=== PATIENT | male | born 1965 | race Caucasian/White ===

== ENCOUNTER 2018-10-13 11:43 | Emergency (ER) | payer BC ==
[~2018-10-13] VITALS: Ht 182.8 cm; Wt 72.6 kg
[~2018-10-13 11:43] MED LIST: CLARITIN-D 12 H1 TAB PO; COMPAZINE10 MG PO; FLEXERIL5 MG PO; IBU800 M1 PO; KEFLEX500 MG PO; MOTRIN800 MG PO; NAPROSYN500 MG PO; PROAIR HFA0.09 MG/AC INH; ROBITUSSIN AC 110 ML PO; VIBRAMYCIN100 MG PO; ZANTAC150 MG PO
[2018-10-13] MEDS ORDERED: PREDNISONE10 MG PO (12:00)
== END 2018-10-13 13:52 | disposition home or self-care (01) ==
LOC: ED 11:43
DX: M70.21 Olecranon bursitis, right elbow (principal); R03.0 Elevated blood-pressure reading, without diagnosis of hypertension; Z79.899 Other long term (current) drug therapy; Y93.89 Activity, other specified

== ENCOUNTER → 2018-10-30 | Outpatient (CLI) | payer BC ==
[~2018-10-30] MED LIST changes: +PREDNISONE10 MG PO
== END | disposition home or self-care (01) ==
LOC: RAD 10:41
DX: M86.8X8 Other osteomyelitis, other site (principal)

== ENCOUNTER 2019-02-19 11:18 | Inpatient (IN) | payer BC ==
[~2019-02-19] VITALS: Ht 182.8 cm; Wt 77.1 kg
--- NOTE | ~2019-02-19 | ST ---
[place], [place] EXERCISE STRESS TEST REPORT NAME: MELIDA BENNETT [facility] #: [id number] UNIT #: [id number] ROOM: 408 DOCTOR: KEVIN RICO,MAVIS BIRTHDATE: [birth year] DOS: 02/20/2019 REASON FOR TEST: Chest pain. PHYSICAL EXAMINATION: NECK: Supple. LUNGS: Clear anteriorly. HEART: Regular rhythm. PROTOCOL: Shayan protocol. Total stress time 6 minutes 15 seconds. Maximum heart 146 which is 89% target heart rate. Peak blood pressure 158/70. Total METS, 7.4 METS. SYMPTOMS: Patient chest pain free. EKG: Resting EKG showed sinus rhythm. Stress EKG showed no ischemia, no arrhythmias. CONCLUSION: Clinically, the patient is chest pain free. EKG nonischemic. POST-STRESS COMPLICATIONS: None. MAVIS BROWN MD CM:STRESS:EXERCISE STRESS TEST REPORT [id number] MAVIS BROWN MD
--- NOTE | ~2019-02-19 | EKG ---
[place], [place] ELECTROCARDIOGRAM REPORT NAME: MELIDA BENNETT UNIT #: [id number] ROOM: 408 DOCTOR: SWAPNIL DRAFT REPORT BIRTHDATE: [birth year] [facility] Test Date: 2019-02-19 Test Time: 15:17:19 Pat Name: MELIDA BENNETT Department: Room: 408 Gender: M Core Mounter: Clary [place] : 1965 Requested By: BOBBY SCALES Order Number: [id number] Reading MD: Thee Gayle Measurements Intervals [place] Rate: 79 P: 72 ND: 173 QRS: 61 QRSD: 101 T: 45 QT: 409 QTc: 469 Interpretive Statements Sinus rhythm Probable left atrial enlargement RSR' in V1 or V2, probably normal variant Electronically Signed On 02-20-2019 9:53:04 PDT by Thee Gayle CM:EKGRPT:ELECTROCARDIOGRAM REPORT [id number] BOBBY CARBALLO DRAFT REPORT BOBBY SCALES DO
--- NOTE | ~2019-02-19 | PR ---
[place], [place] PROGRESS NOTE NAME: MELIDA BENNETT UNIT #: [id number] ROOM: 408 DOCTOR: MAVIS BROWN MD BIRTHDATE: [birth year] DOS: 02/20/2019 REASON FOR VISIT: Chest pain. SUBJECTIVE: The patient had some chest pain last night around 10:00 at rest, lasted about 30 minutes. No radiation. No associated symptoms. He described this as some dull ache pain in the midsternal area. The pain resolved without any intervention. No short of breath. No PND, no orthopnea. No palpitation or dizziness. No bladder or bowel symptoms. REVIEW OF SYSTEMS: Review of 10 systems essentially negative except as mentioned above. RHYTHM STRIPS: The patient in sinus rhythm. OBJECTIVE: VITAL SIGNS: Blood pressure 110/70, pulse 62, respiratory rate 18. GENERAL: Alert, comfortable, in no acute distress. HEENT: Pupils are round and equal. No jaundice. NECK: Supple. No distended neck veins. No carotid bruit. CHEST: Symmetrical, nontender. LUNGS: Clear to auscultation bilaterally. HEART: Regular rhythm, no S3, no palpable thrills. ABDOMEN: Benign, nontender. Bowel sounds normal. EXTREMITIES: Showed no edema. Distal pulses palpable. SKIN: Warm and dry. No cyanosis, no clubbing. RECTAL: Deferred. LABORATORY DATA: Reviewed. CBC, chemistry mostly unremarkable. Cardiac troponins are negative. Hemoglobin 13.9. IMPRESSION: 1. Chest pain, myocardial infarction ruled out. 2. Acid reflux. 3. History of tobacco use, quit 3 weeks ago. 4. Alcohol use. 5. No family history of premature coronary artery disease. 6. Exercise nuclear stress test today. 7. Risk factor modification to quit drinking and also continue to quit smoking discussed. 8. If the stress test is nonischemic, he can be discharged home today. [place], [place] PROGRESS NOTE NAME: MELIDA BENNETT UNIT #: [id number] ROOM: 408 DOCTOR: MAVIS BROWN MD BIRTHDATE: [birth year] MAVIS BROWN MD CM:PNTRANS [id number] MAVIS BROWN MD 02/21/19 0026 interface
--- NOTE | ~2019-02-19 | EKG ---
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
--- NOTE | ~2019-02-19 | CON ---
[place], [place] REPORT OF CONSULTATION NAME: MELIDA BENNETT [facility] #: [id number] UNIT #: [id number] ROOM: 408 DOCTOR: MAVIS BROWN MD BIRTHDATE: [birth year] DOS: 02/19/2019 CARDIOLOGY CONSULTATION REASON FOR CONSULTATION: Chest pain. HISTORY OF PRESENT ILLNESS: The patient is a 53-year-old gentleman with no prior cardiovascular history, who was admitted for intermittent chest pains for the past 2 weeks. He described this pain as a midsternal area, intermittent, sometimes dull and sometimes tightness and it comes usually with exertion and relieves with rest. About 3 weeks ago, he had a tick bite near the left upper thigh. No fever and chills. The patient has some chronic cough from his smoking and he quit 3 weeks ago. The chest pain again in the midsternal area. No radiation. No associated symptoms. The patient used to smoke 3 packs a day, but he quit smoking about 3 weeks ago. Denies any PND or orthopnea. No nausea, vomiting, diarrhea. No fever or chills. No hemoptysis. No bladder or bowel symptoms. No neurologic symptoms. REVIEW OF SYSTEMS: Review of 10 systems negative except as mentioned above. PAST MEDICAL HISTORY: 1. Acid reflux. 2. Right shoulder pain, chronic. PAST SURGICAL HISTORY: History of tooth extraction. SOCIAL HISTORY: The patient used to smoke 3 packs a day, but quit 3 weeks ago. The patient does drink beer daily. Does not use illicit drugs. FAMILY HISTORY: Father for unknown cause. Mother at the age 70 from cancer. The patient had a myocardial infarction in her 30s. ALLERGIES: Reviewed. HOME MEDICATIONS: Reviewed. PHYSICAL EXAMINATION: VITAL SIGNS: Blood pressure 140/86, pulse 76, respiratory rate 16, weight 77.1 kg, BMI 23. GENERAL: Alert, comfortable, in no acute distress. HEENT: Pupils are round and equal. No jaundice. Tongue was moist and pharynx clear. NECK: Supple, no distended neck veins, no carotid bruit. CHEST: Symmetrical, nontender. LUNGS: Few scattered rhonchi. Good air entry bilaterally. HEART: Regular rhythm, no S3, no palpable thrills. ABDOMEN: Benign, nontender. Bowel sounds normal. EXTREMITIES: Showed no edema. Distal pulses palpable. SKIN: Warm and dry. No cyanosis, no clubbing. RECTAL: Deferred. [place], [place] REPORT OF CONSULTATION NAME: MELIDA BENNETT UNIT #: [id number] ROOM: [facility] DOCTOR: KEVIN RICO,MAVIS BIRTHDATE: [birth year] GENITOURINARY: Deferred. PSYCHIATRIC: The patient is alert with good mood and affect. REVIEW OF THE DIAGNOSTIC TESTS: EKG showed sinus rhythm. CBC, chemistry unremarkable. Cardiac troponin is negative x 1. IMPRESSION: 1. Chest pain. 2. History of tobacco use, quit 3 weeks ago. 3. Acid reflux. 4. Alcohol abuse. 5. Family history of premature coronary artery disease. RECOMMENDATIONS: 1. Currently, he is pain free. EKG and labs unremarkable. 2. Continue cyclic cardiac enzymes. If negative, we will schedule for exercise nuclear stress test tomorrow. 3. Risk factor modification for continued to quit smoking and also to quit drinking discussed. Further recommendations based on his symptoms and his labs and her stress test results. 4. Continue to monitor heart rate and blood pressures. MAVIS BROWN MD CM:CONSTR:REPORT OF CONSULTATION 01 02/20/19 0635 interface
--- NOTE | ~2019-02-19 | EKG ---
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
[2019-02-19 11:19] VITALS: BP 146/93
[2019-02-19 11:55] VITALS: BP 136/88
[2019-02-19 11:56] LABS: BASO # 0.1 10*3/uL (0.0-0.1); BASO % 0.8 % (0.0-1.0); EOS % 0.4 % (1.0-4.0); HEMATOCRIT 44.9 % (42.0-52.0); HEMOGLOBIN 15.8 g/dl (14.0-18.0); LYMPH # 1.5 10*3/uL (1.3-4.4); LYMPH % 19.9 % (27.0-41.0); MEAN CELL VOLUME 95.9 fl (80.0-94.0); MEAN CORPUSCULAR HGB 33.8 pg (27.0-31.0); MEAN CORPUSCULAR HGB CONC 35.2 g/dl (33.0-37.0); MEAN PLATELET VOLUME 9.7 fl (9.6-12.3); MONO # 0.9 10*3/uL (0.1-1.0); MONO % 11.3 % (3.0-9.0); NEUT # 5.1 10*3/uL (2.3-7.9); NEUT % 67.2 % (47.0-73.0); PLATELET COUNT AUTOMATED 256 10*3/uL (130-400); RED BLOOD COUNT 4.68 10*6/uL (4.50-5.90); RED CELL DISTRI WIDTH 12.4 % (0-14.5); WHITE BLOOD COUNT 7.6 10*3/uL (4.8-10.8)
[2019-02-19 12:05] LABS: INTERNATIONAL NORM RATIO 0.9 (2.0-3.5)
[2019-02-19 12:11] LABS: ALBUMIN 3.9 gm/dl (3.1-4.5); ALKALINE PHOSPHATASE 106 U/L (45-117); BUN 9 mg/dl (7-24); CHLORIDE 103 mmol/L (98-107); CREATININE 1.08 mg/dL (0.70-1.30); POTASSIUM 4.1 mmol/L (3.5-5.1); SGOT/AST 26 IU/L (3-35); SGPT/ALT 38 U/L (12-78); SODIUM 136 mmol/L (136-145); TOTAL PROTEIN 7.4 gm/dL (6.4-8.2)
[2019-02-19 12:15] LABS: TROPONIN I < 0.015 ng/ml (<0.045)
[2019-02-19 12:53] VITALS: BP 139/92
[2019-02-19 13:43] VITALS: BP 140/86
--- NOTE | 2019-02-19 14:00 | NUR ---
A 53, admitted to , under the services of Dr. MANUEL RICO,DAVIN with a diagnosis of CHEST PAIN. Chief complaint is "NOT FEELING RIGHT.", INTERMITTENT CHEST PAIN FOR THE LAST YEAR AND TICK BITE IN THE LAST 3 WEEKS TO LEFT UPPER THIGH. . Patient arrived via bed from ER. Monitor applied. Initial assessment completed. Vital signs taken and recorded. DR. MANUEL RICO,DAVIN notified of admission to the unit. Orders received. See assessment for past medical history, medications and allergies. Patient and/or family oriented to unit. [facility] visitation policy reviewed. Clothing/patient valuable form completed. ADELSO MORENO
[2019-02-19 16:00] VITALS: BP 135/80
[2019-02-19] MEDS ORDERED: OMEPRAZOLE40 MG PO (17:51)
[2019-02-19 20:00] VITALS: BP 114/74
--- NOTE | 2019-02-19 20:20 | NUR ---
24 HR chart check completed.
--- NOTE | 2019-02-19 21:00 | NUR ---
RESTING IN BED WATCHING TV WITH NO DISTRESS NOTED. RESPIRATIONS EASY. LUNGS DIMINISHED, CLEAR. PULSE OX 99% RA. CLAIMS LOOSE STOOLS PRIOR TO ADMISSION, NONE AT PRESENT. C/O URINARY FREQUENCY. CALL LIGHT WITHIN REACH. NO VOICED COMPLAINTS
[2019-02-20] VITALS: BP 134/81
--- NOTE | 2019-02-20 | NUR ---
SLEEPING. NO DISTRESS NOTED. RESPIRATIONS EASY. VSS. CALL LIGHT WITHIN REACH.
--- NOTE | 2019-02-20 06:00 | NUR ---
SLEPT THROUGHOUT NIGHT WITH NO DISTRESS NOTED. RESPIRATIONS EASY. CALL LIGHT WITHIN REACH. NPO FOR STRESS THIS AM
[2019-02-20 06:28] LABS: BASO # 0.1 10*3/uL (0.0-0.1); EOS # 0.2 10*3/uL (0.0-0.4); EOS % 2.2 % (1.0-4.0); HEMATOCRIT 41.5 % (42.0-52.0); HEMOGLOBIN 13.9 g/dl (14.0-18.0); LYMPH # 1.6 10*3/uL (1.3-4.4); LYMPH % 23.7 % (27.0-41.0); MEAN CELL VOLUME 98.6 fl (80.0-94.0); MEAN CORPUSCULAR HGB CONC 33.5 g/dl (33.0-37.0); MEAN PLATELET VOLUME 10.1 fl (9.6-12.3); MONO # 0.7 10*3/uL (0.1-1.0); MONO % 10.5 % (3.0-9.0); NEUT # 4.2 10*3/uL (2.3-7.9); NEUT % 62.3 % (47.0-73.0); PLATELET COUNT AUTOMATED 220 10*3/uL (130-400); RED BLOOD COUNT 4.21 10*6/uL (4.50-5.90); RED CELL DISTRI WIDTH 12.5 % (0-14.5); WHITE BLOOD COUNT 6.8 10*3/uL (4.8-10.8)
[2019-02-20 06:49] LABS: BUN 14 mg/dl (7-24); CHLORIDE 109 mmol/L (98-107); CHOLESTEROL 156 mg/dL (<200); CREATININE 1.05 mg/dL (0.70-1.30); HDL CHOLESTEROL 77 mg/dl (40-60); LDL CHOLESTEROL 59 mg/dL (9-159); POTASSIUM 3.9 mmol/L (3.5-5.1); SODIUM 140 mmol/L (136-145); TRIGLYCERIDES 100 mg/dl (<150); VLDL CHOLESTEROL 20 mg/dL (6-40)
[2019-02-20 08:00] VITALS: BP 110/60
--- NOTE | 2019-02-20 08:17 | NUR ---
DR HICKMAN IN TO SEE PT.
--- NOTE | 2019-02-20 08:48 | NUR ---
PT TO STRESS TEST VIA WC.
--- NOTE | 2019-02-20 09:00 | NUR ---
Distribution Estimator in to talk to patient. Patient states lives at home with . There are few steps in the home. Physician: silvia Pharmacy: [facility] [place] [facility]: none Patient's level of ADLs: INDEPENDENT Patient has working utilities: all working DME: none Follow-up physician's appointment after d/c: will be made by hospitalist nurse director upon discharge Does patient want to access PORTAL?: no Discharge plan discussed with patient, patient lives at home with , is independent in adls and ambualtion, drives, patient will be returning home when able and denies any home needs. JONO HUERTAS
--- NOTE | 2019-02-20 10:10 | NUR ---
INFORMED CONSENT SIGNED FOR CARDIOLYTE STRESS TEST WITH DR. BROWN. RESTING EKG, NSR, HR 62, BP 110/80. COMPLETED 6:15 OF A STANDARD SARATH PROTOCOL COMPLETING :15 SEDONDS STAGE III, 3.4MPH/14% GRADE. PEAK HEART RATE OF151 ACHIEVED WHICH IS 91% PREDICTED MAXIMUM AND A PEAK BP OF 158/80. TEST TERMINATED D/T FATIGUE. HAS A FAIR EXERCISE TOLERANCE. LAST RECOVERY HR 108, BP 18/72. WAITING NUCLEAR SCANNING IN STABLE CONDITION.
--- NOTE | 2019-02-20 11:05 | NUR ---
PT RETURNED FROM STRESS TEST.
[2019-02-20 12:00] VITALS: BP 126/84
[2019-02-20] MEDS ORDERED: DOXYCYCLINE100 M3 PO (13:28)
--- NOTE | 2019-02-20 14:07 | NUR ---
Discharge instructions reviewed with patient. Patient receptive and verbalizes understanding. Follow-up care arranged. Written instructions given to patient. MAURO MARQUEZ
== END 2019-02-20 14:07 | disposition home or self-care (01) | DRG 868 ==
LOC: ED 11:18 → 4E 13:13 → EDHOLD 13:13 → 4E 13:30
PROVIDERS: Family Medicine; Nurse Practitioner Family; Student in an Organized Health Care Education/Training Program; ADMIT Family Medicine
PROC: 4A02XM4 Measurement of Cardiac Total Activity, External Approach (ICD-10-PCS; principal; 2019-02-20)
DX: A69.20 Lyme disease, unspecified (principal); F10.239 Alcohol dependence with withdrawal, unspecified; R07.89 Other chest pain; K21.9 Gastro-esophageal reflux disease without esophagitis; F41.9 Anxiety disorder, unspecified; D75.89 Other specified diseases of blood and blood-forming organs; R73.9 Hyperglycemia, unspecified; E83.41 Hypermagnesemia; E87.8 Other disorders of electrolyte and fluid balance, not elsewhere classified; E80.6 Other disorders of bilirubin metabolism; M19.011 Primary osteoarthritis, right shoulder; G89.29 Other chronic pain; F17.210 Nicotine dependence, cigarettes, uncomplicated; M25.511 Pain in right shoulder; Z83.3 Family history of diabetes mellitus; Z80.8 Family history of malignant neoplasm of other organs or systems; Z82.49 Family history of ischemic heart disease and other diseases of the circulatory system

== ENCOUNTER 2019-04-02 09:41 | Inpatient (IN) | payer BC ==
[~2019-04-02] VITALS: Ht 185.4 cm; Wt 79.4 kg
--- NOTE | ~2019-04-02 | EKG ---
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
[2019-04-02 09:41] VITALS: BP 123/86
[~2019-04-02 09:41] MED LIST changes: +DOXYCYCLINE100 M3 PO; +OMEPRAZOLE40 MG PO
[2019-04-02 10:13] LABS: BASO % 0.8 % (0.0-1.0); EOS % 0.2 % (1.0-4.0); HEMATOCRIT 43.1 % (42.0-52.0); HEMOGLOBIN 15.4 g/dl (14.0-18.0); LYMPH # 0.8 10*3/uL (1.3-4.4); LYMPH % 15.3 % (27.0-41.0); MEAN CELL VOLUME 94.9 fl (80.0-94.0); MEAN CORPUSCULAR HGB 33.9 pg (27.0-31.0); MEAN CORPUSCULAR HGB CONC 35.7 g/dl (33.0-37.0); MEAN PLATELET VOLUME 9.9 fl (9.6-12.3); MONO # 0.6 10*3/uL (0.1-1.0); MONO % 12.2 % (3.0-9.0); NEUT # 3.7 10*3/uL (2.3-7.9); NEUT % 71.1 % (47.0-73.0); PLATELET COUNT AUTOMATED 165 10*3/uL (130-400); RED BLOOD COUNT 4.54 10*6/uL (4.50-5.90); RED CELL DISTRI WIDTH 12.5 % (0-14.5); WHITE BLOOD COUNT 5.2 10*3/uL (4.8-10.8)
[2019-04-02 10:16] LABS: BILIRUBIN NEGATIVE (NEGATIVE); BLOOD NEGATIVE (NEGATIVE); CLARITY CLEAR (CLEAR); COLOR YELLOW (YELLOW); GLUCOSE NEGATIVE (NEGATIVE); KETONE NEGATIVE (NEGATIVE); LEUKO ESTERASE NEGATIVE (NEGATIVE); NITRITE NEGATIVE (NEGATIVE); PH 7.5 (5.0-9.0); SPECIFIC GRAVITY 1.015 (1.005-1.030); UROBILINOGEN 0.2 E.U./dl (0.2-1.0)
[2019-04-02 10:27] LABS: ACT PARTIAL THROMBO TIME 27.7 SECONDS (20.0-32.1); INTERNATIONAL NORM RATIO 0.9 (2.0-3.5)
[2019-04-02 10:32] LABS: ALBUMIN 3.3 gm/dl (3.1-4.5); ALKALINE PHOSPHATASE 109 U/L (45-117); BUN 11 mg/dl (7-24); CHLORIDE 97 mmol/L (98-107); CREATININE 1.11 mg/dL (0.70-1.30); LIPASE 128 U/L (73-393); POTASSIUM 4.2 mmol/L (3.5-5.1); SGOT/AST 30 IU/L (3-35); SGPT/ALT 41 U/L (12-78); SODIUM 130 mmol/L (136-145); TOTAL PROTEIN 7.4 gm/dL (6.4-8.2); TROPONIN I 0.024 ng/ml (<0.045)
[2019-04-02 10:44] LABS: EPITHELIAL CELLS 0-2; WBC 0-2 wbc/hpf (0-5)
[2019-04-02 10:56] VITALS: BP 119/78
[2019-04-02 12:29] VITALS: BP 114/78
[2019-04-02 16:06] VITALS: BP 110/77
[2019-04-02] MEDS ORDERED: IBU800 M1 PO (16:07)
[2019-04-02 20:00] VITALS: BP 132/91
[2019-04-03] VITALS: BP 128/86
[2019-04-03 05:25] LABS: HEMATOCRIT 40.4 % (42.0-52.0); HEMOGLOBIN 13.7 g/dl (14.0-18.0); MEAN CELL VOLUME 97.3 fl (80.0-94.0); MEAN CORPUSCULAR HGB CONC 33.9 g/dl (33.0-37.0); MEAN PLATELET VOLUME 9.8 fl (9.6-12.3); PLATELET COUNT AUTOMATED 142 10*3/uL (130-400); RED BLOOD COUNT 4.15 10*6/uL (4.50-5.90); RED CELL DISTRI WIDTH 12.6 % (0-14.5)
[2019-04-03 05:54] LABS: ALBUMIN 2.8 gm/dl (3.1-4.5); ALKALINE PHOSPHATASE 91 U/L (45-117); BUN 11 mg/dl (7-24); CHLORIDE 103 mmol/L (98-107); PHOSPHOROUS 3.5 mg/dL (2.5-4.9); POTASSIUM 4.5 mmol/L (3.5-5.1); SGOT/AST 23 IU/L (3-35); SGPT/ALT 36 U/L (12-78); SODIUM 136 mmol/L (136-145); TOTAL PROTEIN 6.2 gm/dL (6.4-8.2)
[2019-04-03 06:18] LABS: ATYPICAL LYMPHS 1 % (0-0); BASOPHILS 1 % (0-1); PLATELET SUFFICIENCY NORMAL (NORMAL); TOTAL CELLS COUNTED 100 #CELLS
[2019-04-03 08:00] VITALS: BP 122/77
[2019-04-03 12:00] VITALS: BP 112/70
[2019-04-03 16:00] VITALS: BP 117/72; BP 119/70
[2019-04-03 20:00] VITALS: BP 123/72
[2019-04-04] VITALS: BP 118/74
[2019-04-04 06:11] LABS: BASO % 0.4 % (0.0-1.0); HEMATOCRIT 35.4 % (42.0-52.0); HEMOGLOBIN 11.8 g/dl (14.0-18.0); LYMPH # 1.9 10*3/uL (1.3-4.4); LYMPH % 28.2 % (27.0-41.0); MEAN CELL VOLUME 99.2 fl (80.0-94.0); MEAN CORPUSCULAR HGB 33.1 pg (27.0-31.0); MEAN CORPUSCULAR HGB CONC 33.3 g/dl (33.0-37.0); MEAN PLATELET VOLUME 9.8 fl (9.6-12.3); MONO # 0.6 10*3/uL (0.1-1.0); MONO % 9.5 % (3.0-9.0); NEUT # 4.1 10*3/uL (2.3-7.9); NEUT % 61.5 % (47.0-73.0); PLATELET COUNT AUTOMATED 180 10*3/uL (130-400); RED BLOOD COUNT 3.57 10*6/uL (4.50-5.90); RED CELL DISTRI WIDTH 12.8 % (0-14.5); WHITE BLOOD COUNT 6.7 10*3/uL (4.8-10.8)
[2019-04-04 08:00] VITALS: BP 136/79
[2019-04-04 12:00] VITALS: BP 132/75
[2019-04-04 16:00] VITALS: BP 128/76
[2019-04-04 20:00] VITALS: BP 129/74
[2019-04-05] VITALS: BP 135/78
[2019-04-05 06:30] LABS: ALBUMIN 2.9 gm/dl (3.1-4.5); ALKALINE PHOSPHATASE 76 U/L (45-117); BUN 9 mg/dl (7-24); CHLORIDE 108 mmol/L (98-107); CREATININE 0.91 mg/dL (0.70-1.30); POTASSIUM 3.7 mmol/L (3.5-5.1); SGOT/AST 19 IU/L (3-35); SGPT/ALT 39 U/L (12-78); SODIUM 140 mmol/L (136-145); TOTAL PROTEIN 5.9 gm/dL (6.4-8.2)
[2019-04-05 07:54] VITALS: BP 149/93
[2019-04-05] MEDS ORDERED: PREDNISONE10 MG PO (09:43)
[2019-04-05] MEDS ORDERED: ZITHROMAX500 MG PO (09:43)
== END 2019-04-05 11:11 | disposition home or self-care (01) | DRG 871 ==
LOC: ED 09:41 → EDHOLD 13:49 → 4E 13:49
PROVIDERS: Internal Medicine; Nurse Practitioner Family; ADMIT Internal Medicine
DX: A41.9 Sepsis, unspecified organism (principal); J18.9 Pneumonia, unspecified organism; E87.1 Hypo-osmolality and hyponatremia; M54.41 Lumbago with sciatica, right side; R73.9 Hyperglycemia, unspecified; F41.9 Anxiety disorder, unspecified; K44.9 Diaphragmatic hernia without obstruction or gangrene; G89.29 Other chronic pain; M25.511 Pain in right shoulder; K21.9 Gastro-esophageal reflux disease without esophagitis; Z87.891 Personal history of nicotine dependence; Z83.3 Family history of diabetes mellitus; Z82.49 Family history of ischemic heart disease and other diseases of the circulatory system; Z80.9 Family history of malignant neoplasm, unspecified

== ENCOUNTER 2019-05-17 09:30 | Emergency (ER) | payer BC ==
[~2019-05-17] VITALS: Ht 182.8 cm; Wt 72.6 kg
[~2019-05-17 09:30] MED LIST changes: +ZITHROMAX500 MG PO
[2019-05-17 10:11] LABS: BASO # 0.1 10*3/uL (0.0-0.1); BASO % 1.4 % (0.0-1.0); EOS # 0.1 10*3/uL (0.0-0.4); EOS % 0.9 % (1.0-4.0); HEMATOCRIT 44.9 % (42.0-52.0); HEMOGLOBIN 15.2 g/dl (14.0-18.0); LYMPH # 1.9 10*3/uL (1.3-4.4); LYMPH % 29.3 % (27.0-41.0); MEAN CELL VOLUME 97.8 fl (80.0-94.0); MEAN CORPUSCULAR HGB 33.1 pg (27.0-31.0); MEAN CORPUSCULAR HGB CONC 33.9 g/dl (33.0-37.0); MEAN PLATELET VOLUME 9.2 fl (9.6-12.3); MONO # 0.8 10*3/uL (0.1-1.0); NEUT # 3.5 10*3/uL (2.3-7.9); NEUT % 55.1 % (47.0-73.0); PLATELET COUNT AUTOMATED 225 10*3/uL (130-400); RED BLOOD COUNT 4.59 10*6/uL (4.50-5.90); RED CELL DISTRI WIDTH 13.1 % (0-14.5); WHITE BLOOD COUNT 6.4 10*3/uL (4.8-10.8)
[2019-05-17 10:12] LABS: BILIRUBIN NEGATIVE (NEGATIVE); BLOOD NEGATIVE (NEGATIVE); CLARITY SL CLOUDY (CLEAR); COLOR YELLOW (YELLOW); GLUCOSE NEGATIVE (NEGATIVE); KETONE NEGATIVE (NEGATIVE); LEUKO ESTERASE NEGATIVE (NEGATIVE); NITRITE NEGATIVE (NEGATIVE); PH 5.5 (5.0-9.0); UROBILINOGEN 0.2 E.U./dl (0.2-1.0)
[2019-05-17 10:21] LABS: BACTERIA TRACE; EPITHELIAL CELLS 0-2; RBC 0-2 rbc/hpf (0-2); WBC 0-2 wbc/hpf (0-5)
[2019-05-17 10:23] LABS: ACT PARTIAL THROMBO TIME 22.2 SECONDS (20.0-32.1); INTERNATIONAL NORM RATIO 0.9 (2.0-3.5)
[2019-05-17 10:31] LABS: ALBUMIN 3.7 gm/dl (3.1-4.5); ALKALINE PHOSPHATASE 68 U/L (45-117); BUN 16 mg/dl (7-24); CHLORIDE 105 mmol/L (98-107); CREATININE 1.01 mg/dL (0.70-1.30); LIPASE 207 U/L (73-393); POTASSIUM 4.1 mmol/L (3.5-5.1); SGOT/AST 26 IU/L (3-35); SODIUM 134 mmol/L (136-145)
[2019-05-17 10:36] LABS: SGPT/ALT 39 U/L (12-78)
== END 2019-05-17 12:09 | disposition home or self-care (01) ==
LOC: ED 09:30
PROVIDERS: Physician Assistant
DX: R10.9 Unspecified abdominal pain (principal); R14.0 Abdominal distension (gaseous); R11.2 Nausea with vomiting, unspecified; R19.7 Diarrhea, unspecified; Z87.891 Personal history of nicotine dependence

== ENCOUNTER 2019-06-11 10:19 | Emergency (ER) | payer BC ==
[~2019-06-11] VITALS: Wt 79.8 kg
[2019-06-11 10:45] LABS: BASO # 0.1 10*3/uL (0.0-0.1); BASO % 1.6 % (0.0-1.0); EOS # 0.1 10*3/uL (0.0-0.4); EOS % 1.4 % (1.0-4.0); HEMATOCRIT 45.8 % (42.0-52.0); HEMOGLOBIN 15.7 g/dl (14.0-18.0); LYMPH # 1.6 10*3/uL (1.3-4.4); LYMPH % 31.1 % (27.0-41.0); MEAN CELL VOLUME 95.8 fl (80.0-94.0); MEAN CORPUSCULAR HGB 32.8 pg (27.0-31.0); MEAN CORPUSCULAR HGB CONC 34.3 g/dl (33.0-37.0); MEAN PLATELET VOLUME 9.5 fl (9.6-12.3); MONO # 0.6 10*3/uL (0.1-1.0); MONO % 10.7 % (3.0-9.0); NEUT # 2.8 10*3/uL (2.3-7.9); NEUT % 54.8 % (47.0-73.0); PLATELET COUNT AUTOMATED 252 10*3/uL (130-400); RED BLOOD COUNT 4.78 10*6/uL (4.50-5.90); RED CELL DISTRI WIDTH 12.5 % (0-14.5); WHITE BLOOD COUNT 5.1 10*3/uL (4.8-10.8)
[2019-06-11 11:00] LABS: ALBUMIN 3.8 gm/dl (3.1-4.5); ALKALINE PHOSPHATASE 92 U/L (45-117); BUN 10 mg/dl (7-24); CHLORIDE 104 mmol/L (98-107); CREATININE 1.11 mg/dL (0.70-1.30); LIPASE 172 U/L (73-393); POTASSIUM 4.1 mmol/L (3.5-5.1); SGOT/AST 28 IU/L (3-35); SGPT/ALT 40 U/L (12-78); SODIUM 136 mmol/L (136-145); TOTAL PROTEIN 7.1 gm/dL (6.4-8.2)
[2019-06-11 11:02] LABS: BILIRUBIN NEGATIVE (NEGATIVE); BLOOD NEGATIVE (NEGATIVE); CLARITY CLEAR (CLEAR); COLOR YELLOW (YELLOW); GLUCOSE NEGATIVE (NEGATIVE); KETONE NEGATIVE (NEGATIVE); LEUKO ESTERASE NEGATIVE (NEGATIVE); NITRITE NEGATIVE (NEGATIVE); PH 5.5 (5.0-9.0); SPECIFIC GRAVITY <= 1.005 (1.005-1.030); UROBILINOGEN 0.2 E.U./dl (0.2-1.0)
[2019-06-11 11:11] LABS: EPITHELIAL CELLS 0-2; MUCOUS TRACE; RBC 0-2 rbc/hpf (0-2)
[2019-06-11] MEDS ORDERED: MIRALAX POWDER17 G1 PO (11:25)
== END 2019-06-11 11:32 | disposition home or self-care (01) ==
LOC: ED 10:19
PROVIDERS: Nurse Practitioner Family
DX: K59.00 Constipation, unspecified (principal); Z87.891 Personal history of nicotine dependence

== ENCOUNTER 2021-09-29 11:11 | Emergency (ER) | payer BC ==
[~2021-09-29] VITALS: Ht 182.8 cm; Wt 81.6 kg
[~2021-09-29 11:11] MED LIST changes: +MIRALAX POWDER17 G1 PO
== END 2021-09-29 14:00 | disposition home or self-care (01) ==
LOC: ED 11:11
DX: U07.1 COVID-19 (principal)

== ENCOUNTER 2023-10-12 11:25 | Emergency (ER) | payer BC ==
[~2023-10-12] VITALS: Ht 182.8 cm; Wt 79.4 kg
[2023-10-12 12:44] LABS: BASO # 0.1 10*3/uL (0.0-0.1); BASO % 1.3 % (0.0-1.0); EOS % 0.5 % (1.0-4.0); HEMATOCRIT 47.4 % (42.0-52.0); LYMPH # 1.3 10*3/uL (1.3-4.4); LYMPH % 20.4 % (27.0-41.0); MEAN CELL VOLUME 94.6 fl (80.0-94.0); MEAN CORPUSCULAR HGB 31.7 pg (27.0-31.0); MEAN CORPUSCULAR HGB CONC 33.5 g/dl (33.0-37.0); MEAN PLATELET VOLUME 9.5 fl (9.6-12.3); MONO # 0.7 10*3/uL (0.1-1.0); MONO % 11.1 % (3.0-9.0); NEUT # 4.2 10*3/uL (2.3-7.9); NEUT % 66.4 % (47.0-73.0); PLATELET COUNT AUTOMATED 266 10*3/uL (130-400); RED BLOOD COUNT 5.01 10*6/uL (4.50-5.90); WHITE BLOOD COUNT 6.3 10*3/uL (4.8-10.8)
[2023-10-12 12:55] LABS: ACT PARTIAL THROMBO TIME 26.1 SECONDS (20.0-32.1)
[2023-10-12 13:10] LABS: ALKALINE PHOSPHATASE 82 U/L (46-116); BUN 10 mg/dl (9-23); CHLORIDE 104 mmol/L (98-107); LIPASE 39 U/L (12-53); POTASSIUM 3.9 mmol/L (3.4-5.1); SGPT/ALT 39 U/L (5-49); TOTAL PROTEIN 7.2 gm/dL (6.0-8.0)
== END 2023-10-12 15:32 | disposition home or self-care (01) ==
LOC: ED 11:25
PROVIDERS: Physician Assistant Medical
DX: R07.89 Other chest pain (principal); R06.02 Shortness of breath; K21.9 Gastro-esophageal reflux disease without esophagitis; Z98.890 Other specified postprocedural states; F10.10 Alcohol abuse, uncomplicated; Z87.891 Personal history of nicotine dependence

== ENCOUNTER 2024-07-19 07:35 | Emergency (ER) | payer BC ==
[~2024-07-19] VITALS: Ht 182.8 cm; Wt 81.6 kg
[2024-07-19 08:27] LABS: BASO # 0.1 10*3/uL (0.0-0.1); BASO % 0.7 % (0.0-1.0); EOS # 0.1 10*3/uL (0.0-0.4); EOS % 1.1 % (1.0-4.0); HEMATOCRIT 44.7 % (42.0-52.0); LYMPH # 1.6 10*3/uL (1.3-4.4); LYMPH % 19.4 % (27.0-41.0); MEAN CELL VOLUME 94.1 fl (80.0-94.0); MEAN PLATELET VOLUME 9.3 fl (9.6-12.3); MONO % 12.5 % (3.0-9.0); NEUT # 5.5 10*3/uL (2.3-7.9); NEUT % 65.8 % (47.0-73.0); PLATELET COUNT AUTOMATED 261 10*3/uL (130-400); RED BLOOD COUNT 4.75 10*6/uL (4.50-5.90); RED CELL DISTRI WIDTH 12.7 % (0-14.5); WHITE BLOOD COUNT 8.3 10*3/uL (4.8-10.8)
[2024-07-19 08:49] LABS: BUN 11 mg/dl (9-23); CHLORIDE 103 mmol/L (98-107)
[2024-07-19] MEDS ORDERED: VIBRAMYCIN100 MG PO (09:33)
[2024-07-19] MEDS ORDERED: CEPHALEXIN500 M1 PO (09:33)
== END 2024-07-19 09:47 | disposition home or self-care (01) ==
LOC: ED 07:35
PROVIDERS: Physician Assistant Medical
DX: L03.012 Cellulitis of left finger (principal); K21.9 Gastro-esophageal reflux disease without esophagitis; F10.10 Alcohol abuse, uncomplicated; Z98.890 Other specified postprocedural states; Z87.891 Personal history of nicotine dependence

== ENCOUNTER → 2025-03-26 | Outpatient (CLI) | payer BC ==
[~2025-03-26] MED LIST changes: +CEPHALEXIN500 M1 PO
== END | disposition home or self-care (01) ==
LOC: CT 07:34
PROVIDERS: ATTEND Internal Medicine
DX: Z12.2 Encounter for screening for malignant neoplasm of respiratory organs (principal); J43.9 Emphysema, unspecified; Z87.891 Personal history of nicotine dependence